=== PATIENT | female | born 1960 | race African-American/Black ===

== ENCOUNTER 2021-03-05 17:52 | Inpatient (IN) ==
[2021-03-05 20:33] LABS: Basophils % 0.4 % (0.0-0.8); Eosinophils % 0.7 % (0.00-10.9); Hematocrit 44.8 VOL% (35.7-47.0); Hemoglobin 15.1 GM/DL (12.0-16.0); Immature Granulocytes % 0.9 %; Immature Granulocytes Absolute 0.04 #; Lymphocytes % 22.1 % (21.3-54.2); Mean Corpuscular HGB Conc 33.7 GM/DL (32-36); Mean Corpuscular Volume 81.8 FL (87-102); Mean Platelet Volume 11.5 FL (9.6-12.0); Monocytes % 15.3 % (1.7-12.7); Neutrophils % 60.6 % (38.7-73.9); Platelet Count 207 T/CUMM (130-400); Red Blood Count 5.48 MC/CUMM (3.8-5.5); Red Cell Distribution Width 15.9 % (9.3-17.3); White Blood Count 4.5 T/CUMM (4-12)
[2021-03-05 20:50] LABS: Alanine Aminotransferase 18 U/L (13-56); Albumin 3.2 G/DL (3.4-5.0); Alkaline Phosphatase 84 U/L (45-117); Aspartate Amino Transferase 23 U/L (0-37); Bilirubin,Total < 0.39 MG/DL (0.20-1.00); Blood Urea Nitrogen 39 MG/DL (7-18); Calcium 9.4 MG/DL (8.5-10.1); Carbon Dioxide 38 MMOL/L (21-32); Estimated Glom Filtration Rate 55 ML/MIN; Glucose 125 MG/DL (74-106); Osmolality,Calculated 275.4 MOS/KG (273-304); Potassium 2.7 MMOL/L (3.5-5.1); Sodium 133 MMOL/L (136-145); Total Protein 8.6 G/DL (6.4-8.2)
[2021-03-05] MEDS ORDERED: POTASSIUM CHLORIDE 20 MEQ TABLET PO STA (20:54)
[2021-03-05] MEDS ORDERED: ALBUTEROL/IPRATROPIUM 3 ML NEB RESP TX STA (21:06)
[2021-03-05] MEDS ORDERED: LEVOFLOXACIN INJ 750 MG/150 ML PREMIX IV STA (21:06)
[2021-03-05] MEDS ORDERED: methylPREDNISolone SOD SUC 125 MG/2 ML VIAL IV STA (21:06)
[2021-03-05] MEDS ORDERED: GLUCAGON 1 MG VIAL IM PRN (22:15)
[2021-03-05] MEDS ORDERED: MAGNESIUM SULF RIDER 2 GM/50 ML PREMIX IV PRN (22:17)
[2021-03-05] MEDS ORDERED: MAGNESIUM SULF RIDER 4 GM/100 ML PREMIX IV PRN (22:17)
[2021-03-05] MEDS ORDERED: POTASSIUM CHLORIDE RIDER 10 MEQ/100 ML PREMIX IV PRN (22:30)
[2021-03-05] MEDS ORDERED: ONDANSETRON 4 MG/2 ML VIAL IV PRN (22:30)
[2021-03-05] MEDS ORDERED: SIMETHICONE CHEW 125 MG TABLET PO PRN (22:30)
[2021-03-05] MEDS ORDERED: ACETAMINOPHEN 325 MG TABLET PO PRN (22:30)
[2021-03-05] MEDS ORDERED: DEXTROSE 10% 250 ML BAG IV PRN (22:46)
[2021-03-05] MEDS ORDERED: ALBUTEROL 2.5 MG/3 ML NEB RESP TX ONE (23:08)
[2021-03-06] MEDS: ALBUTEROL 2.5 MG/3 ML NEB RESP TX SCH ×4 (00:02→19:20)
[2021-03-06] MEDS: SODIUM CHLORIDE 0.9% 1,000 ML IV SCH (00:33)
[2021-03-06] MEDS: ENOXAPARIN 40 MG/0.4 ML SYRINGE SUBCUT SCH ×2 (00:34→21:22)
[2021-03-06 04:58] LABS: Basophils % 0.4 % (0.0-0.8); Hematocrit 42.3 VOL% (35.7-47.0); Hemoglobin 14.2 GM/DL (12.0-16.0); Immature Granulocytes % 1.1 %; Immature Granulocytes Absolute 0.03 #; Lymphocytes # 0.7 10*3/uL (1.4-4.0); Lymphocytes % 24.9 % (21.3-54.2); Mean Corpuscular HGB Conc 33.6 GM/DL (32-36); Mean Corpuscular Volume 81.8 FL (87-102); Mean Platelet Volume 11.8 FL (9.6-12.0); Monocytes % 7.5 % (1.7-12.7); Neutrophils % 66.1 % (38.7-73.9); Platelet Count 199 T/CUMM (130-400); Red Blood Count 5.17 MC/CUMM (3.8-5.5); Red Cell Distribution Width 15.8 % (9.3-17.3); White Blood Count 2.8 T/CUMM (4-12)
[2021-03-06 05:23] LABS: Calcium 8.7 MG/DL (8.5-10.1); Osmolality,Calculated 282.5 MOS/KG (273-304); Potassium 3.9 MMOL/L (3.5-5.1); Risk Ratio 3.41; Thyroid Stimulating Hormone 0.213 uIU/ml (0.358-3.74); VLDL Cholesterol 20.8 MG/DL
[2021-03-06 06:53] LABS: Hypochromia 1+; Platelet Estimate Adequate; Polychromasia Slight
[2021-03-06] MEDS: methylPREDNISolone SOD SUC 40 MG/1 ML VIAL IV SCH ×3 (07:00→21:21)
[2021-03-06] MEDS: INSULIN REGULAR 100 UNIT/ML SUBCUT SCH ×4 (09:04→21:21)
[2021-03-06] MEDS: DOCUSATE SODIUM 100 MG CAPSULE PO SCH ×2 (10:59→21:21)
[2021-03-06] MEDS: guaiFENesin/DM ER 600-30 MG TABLET PO SCH ×2 (10:59→21:21)
[2021-03-06] MEDS: PANTOPRAZOLE 40 MG TABLET PO SCH (10:59)
[2021-03-06] MEDS: LACTATED RINGERS 1,000 ML IV SCH ×2 (17:38)
[2021-03-06] MEDS ORDERED: LEVOFLOXACIN INJ 750 MG/150 ML PREMIX IV SCH (21:00)
[2021-03-07] MEDS: ALBUTEROL 2.5 MG/3 ML NEB RESP TX SCH ×2 (00:17→07:15)
[2021-03-07] MEDS: LACTATED RINGERS 1,000 ML IV SCH ×2 (02:25→02:29)
[2021-03-07] MEDS: methylPREDNISolone SOD SUC 40 MG/1 ML VIAL IV SCH (06:07)
[2021-03-07 06:55] LABS: Basophils % 0.2 % (0.0-0.8); Hematocrit 41.8 VOL% (35.7-47.0); Hemoglobin 13.5 GM/DL (12.0-16.0); Immature Granulocytes % 0.7 %; Immature Granulocytes Absolute 0.04 #; Lymphocytes # 1.5 10*3/uL (1.4-4.0); Lymphocytes % 24.8 % (21.3-54.2); Mean Corpuscular HGB Conc 32.3 GM/DL (32-36); Mean Corpuscular Volume 84.8 FL (87-102); Mean Platelet Volume 12.1 FL (9.6-12.0); Monocytes % 10.1 % (1.7-12.7); Neutrophils % 64.2 % (38.7-73.9); Platelet Count 188 T/CUMM (130-400); Red Blood Count 4.93 MC/CUMM (3.8-5.5); Red Cell Distribution Width 16.2 % (9.3-17.3)
[2021-03-07 07:17] LABS: Calcium 8.7 MG/DL (8.5-10.1); Osmolality,Calculated 281.8 MOS/KG (273-304)
[2021-03-07] MEDS: SODIUM CHLORIDE 0.9% 1,000 ML IV SCH (07:24)
[2021-03-07 08:35] VITALS: BP 119/71
[2021-03-07] MEDS: DOCUSATE SODIUM 100 MG CAPSULE PO SCH (08:56)
[2021-03-07] MEDS: INSULIN REGULAR 100 UNIT/ML SUBCUT SCH (08:56)
[2021-03-07] MEDS: guaiFENesin/DM ER 600-30 MG TABLET PO SCH (08:56)
[2021-03-07] MEDS ORDERED: POTASSIUM CHLORIDE 20 MEQ TABLET PO ONE (10:00)
[2021-03-07] MEDS: PANTOPRAZOLE 40 MG TABLET PO SCH (12:22)
== END 2021-03-07 11:03 | disposition home or self-care (01) | DRG 190 ==
LOC: N.ED 17:52 → SUATTDRO 22:17 → N.EDINP 22:17 → N.3E 03-06 11:50
PROVIDERS: ADMIT Internal Medicine; ATTEND Internal Medicine